=== PATIENT | male | born 1940 | race Caucasian/White ===

== ENCOUNTER → 2018-09-19 10:20 | Outpatient (CLI) | payer OTHER, SELFPAY ==
[2018-09-19 10:47] LABS: Hematocrit 49.6 % (41-53); Hemoglobin 16.5 g/dL (13.5-17.5); Mean Corpuscular HGB Conc 33.3 % (30-36); Mean Corpuscular Hemoglobin 33.1 PG (26-34); Mean Corpuscular Volume 99.6 fL (80-100); Platelet Count 312 X10^3/uL (150-400); Red Blood Cell Count 4.98 X10^6/uL (4.5-5.9); Red Cell Distribution Width 13.2 % (11.6-14.8); White Blood Cell Count 8.4 X10^3/uL (4.5-11.0)
[2018-09-19 11:04] LABS: Cholesterol 252 mg/dL (140-199); HDL Cholesterol 61 mg/dL (40-60); LDL Cholesterol Calculated 143 mg/dL (<100); Triglycerides 238 mg/dL (35-150)
[2018-09-19 11:34] LABS: Prostate Specific Antigen Scrn 6.05 ng/mL (0.1-4.0)
== END ==
PROVIDERS: PCP Student in an Organized Health Care Education/Training Program; Visit Provider Student in an Organized Health Care Education/Training Program
DX: E55.9 Vitamin D deficiency, unspecified (principal); E03.9 Hypothyroidism, unspecified; Z12.5 Encounter for screening for malignant neoplasm of prostate; Z13.220 Encounter for screening for lipoid disorders
CPT/HCPCS: 36415; 80061; 82306; 85027; G0103

== ENCOUNTER → 2019-06-18 09:55 | Outpatient (CLI) | payer OTHER, SELFPAY ==
[2019-06-18 11:09] LABS: Alanine Aminotransferase 22 IU/L (<50); Albumin 4.1 g/dL (3.5-5.0); Albumin Globulin Ratio 1.4 (1.0-2.8); Alkaline Phosphatase 76 U/L (38-126); Aspartate Aminotransferase 35 IU/L (17-59); Bilirubin Unconjugated 0.8 mg/dL (0.0-1.1); Cholesterol 245 mg/dL (140-199); Globulin 2.9 g/dL (1.7-4.1); HDL Cholesterol 54 mg/dL (40-60); HEMOLYSIS < 15 (0-50); LDL Cholesterol Calculated 153 mg/dL (<100); Triglycerides 189 mg/dL (35-150)
== END ==
PROVIDERS: PCP Student in an Organized Health Care Education/Training Program; Visit Provider Student in an Organized Health Care Education/Training Program
DX: E78.2 Mixed hyperlipidemia (principal); Z79.899 Other long term (current) drug therapy
CPT/HCPCS: 36415; 80061; 80076

== ENCOUNTER → 2019-09-04 09:22 | Outpatient (CLI) | payer OTHER, SELFPAY ==
[2019-09-04 11:32] LABS: Prolactin 26.3 ng/mL (3.7-17.9)
[2019-09-08 10:32] LABS: Testosterone Free 43.3 pg/mL (30.0-135.0); Testosterone Total 399 ng/dL (250-1100)
== END ==
PROVIDERS: PCP Student in an Organized Health Care Education/Training Program; Referring Provider Student in an Organized Health Care Education/Training Program; Visit Provider Student in an Organized Health Care Education/Training Program
DX: D35.2 Benign neoplasm of pituitary gland (principal); E29.1 Testicular hypofunction
CPT/HCPCS: 36415; 84146; 84402; 84403

== ENCOUNTER → 2020-01-31 14:13 | Outpatient (CLI) | payer OTHER, SELFPAY ==
[2020-01-31 15:20] LABS: Add Manual Diff / Slide Review NO; Basophils Absolute Auto 0 /uL (0-100); Basophils Percent Auto 0.1 % (0-2); Eosinophils Absolute Auto 200 /uL (0-450); Eosinophils Percent Auto 2.6 % (2-4); Hematocrit 43.4 % (41-53); Hemoglobin 14.7 g/dL (13.5-17.5); Lymphocytes Absolute Auto 2300 /uL (1100-4500); Lymphocytes Percent Auto 34.3 % (25-40); Mean Corpuscular HGB Conc 33.8 % (30-36); Mean Corpuscular Hemoglobin 32.4 PG (26-34); Mean Corpuscular Volume 95.8 fL (80-100); Monocytes Absolute Auto 500 /uL (0-900); Monocytes Percent Auto 7.9 % (3-14); Neutrophils Absolute Auto 3600 /uL (1500-7000); Neutrophils Percent Auto 55.1 % (50-75); Platelet Count 233 X10^3/uL (150-400); Red Blood Cell Count 4.53 X10^6/uL (4.5-5.9); Red Cell Distribution Width 13.7 % (11.6-14.8); White Blood Cell Count 6.6 X10^3/uL (4.5-11.0)
[2020-01-31 16:24] LABS: Prolactin 7.8 ng/mL (3.7-17.9)
== END ==
PROVIDERS: PCP Student in an Organized Health Care Education/Training Program; Referring Provider Student in an Organized Health Care Education/Training Program; Visit Provider Student in an Organized Health Care Education/Training Program
DX: D35.2 Benign neoplasm of pituitary gland (principal); E29.1 Testicular hypofunction; R09.89 Other specified symptoms and signs involving the circulatory and respiratory systems
CPT/HCPCS: 36415; 84146; 85025

== ENCOUNTER → 2020-04-16 11:11 | Outpatient (CLI) | payer OTHER, SELFPAY ==
[2020-04-16 13:10] LABS: Prolactin 7.8 ng/mL (3.7-17.9)
== END ==
PROVIDERS: PCP Student in an Organized Health Care Education/Training Program; Referring Provider Specialist; Visit Provider Specialist
DX: D35.2 Benign neoplasm of pituitary gland (principal); N40.1 Benign prostatic hyperplasia with lower urinary tract symptoms; N13.8 Other obstructive and reflux uropathy; E29.1 Testicular hypofunction; N48.6 Induration penis plastica
CPT/HCPCS: 36415; 51798; 81002; 84146; 84153; 99214

== ENCOUNTER → 2020-09-14 11:38 | Outpatient (CLI) | payer OTHER, SELFPAY ==
[2020-09-14 13:51] LABS: Alanine Aminotransferase 23 IU/L (<50); Albumin 4.4 g/dL (3.5-5.0); Albumin Globulin Ratio 1.4 (1.0-2.8); Alkaline Phosphatase 73 U/L (38-126); Aspartate Aminotransferase 37 IU/L (17-59); BUN Creatinine Ratio 12.1 (6-22); Bilirubin Total 1.1 mg/dL (0.2-1.3); Blood Urea Nitrogen 11 mg/dL (9-20); Calcium 9.1 mg/dL (8.4-10.2); Carbon Dioxide 30 mmol/L (22-32); Chloride 101 mmol/L (98-107); Estimated Glomerular Filt Rate > 60.0 mL/min (>60); Globulin 3.1 g/dL (1.7-4.1); Glucose 100 mg/dL (80-110); HEMOLYSIS < 15 (0-50); Potassium 3.7 mmol/L (3.4-5.1); Sodium 136 mmol/L (137-145); Total Protein 7.5 g/dL (6.3-8.2)
[2020-09-14 14:02] LABS: Prolactin 8.1 ng/mL (3.7-17.9)
[2020-09-14 14:11] LABS: Free T4, Direct Thyroxine 1.21 ng/dL (0.78-2.19)
[2020-09-14 14:16] LABS: Prostate Specific Antigen Scrn 3.78 ng/mL (0.1-4.0)
[2020-09-14 14:25] LABS: Thyroid Stimulating Hormone 0.557 uIU/mL (0.47-4.68)
[2020-09-19 08:28] LABS: Percent Free Testosterone 2.43 % (1.50-4.20); Testosterone Free 8.04 ng/dL (5.00-21.00); Testosterone Total 330.7 ng/dL (264.0-916.0)
== END ==
PROVIDERS: PCP Family Medicine; Referring Provider Family Medicine; Visit Provider Family Medicine
DX: D35.2 Benign neoplasm of pituitary gland (principal); Z12.5 Encounter for screening for malignant neoplasm of prostate; E03.9 Hypothyroidism, unspecified; E29.1 Testicular hypofunction
CPT/HCPCS: 36415; 80053; 84146; 84402; 84403; 84439; 84443; G0103

== ENCOUNTER → 2020-09-16 09:30 | Outpatient (CLI) | payer OTHER, SELFPAY ==
[2020-09-17 15:27] LABS: Fecal Immunochemical Test Negative (Negative)
== END ==
PROVIDERS: PCP Family Medicine; Referring Provider Family Medicine; Visit Provider Family Medicine
DX: D35.2 Benign neoplasm of pituitary gland (principal); E03.9 Hypothyroidism, unspecified; E29.1 Testicular hypofunction
CPT/HCPCS: 82274

== ENCOUNTER → 2020-10-05 09:18 | Outpatient (CLI) | payer MEDICARE, SELFPAY ==
[2020-10-05] MEDS: COVID-19 VACC, Ad26(JANSSEN)/PF 0.5 ML IM (09:25)
== END ==
PROVIDERS: PCP Family Medicine; Visit Provider Internal Medicine
DX: Z23 Encounter for immunization (principal)
CPT/HCPCS: 0031A; 91303

== ENCOUNTER → 2021-03-09 09:56 | Outpatient (CLI) | payer OTHER, SELFPAY ==
[2021-03-09 11:08] LABS: Prostate Specific Antigen 3.44 ng/mL (0.10-4.00)
== END ==
PROVIDERS: PCP Family Medicine; Referring Provider Specialist; Visit Provider Specialist
DX: N13.8 Other obstructive and reflux uropathy (principal); N40.1 Benign prostatic hyperplasia with lower urinary tract symptoms
CPT/HCPCS: 36415; 84153

== ENCOUNTER → 2021-06-07 15:33 | Outpatient (CLI) | payer OTHER, SELFPAY ==
[2021-06-07 17:41] LABS: Add Manual Diff / Slide Review NO; Basophils Absolute Auto 0 /uL (0-100); Basophils Percent Auto 0.3 % (0-2); Eosinophils Absolute Auto 200 /uL (0-450); Eosinophils Percent Auto 2.6 % (2-4); Hematocrit 43.1 % (41-53); Hemoglobin 14.9 g/dL (13.5-17.5); Lymphocytes Absolute Auto 2200 /uL (1100-4500); Lymphocytes Percent Auto 32.9 % (25-40); Mean Corpuscular HGB Conc 34.6 % (30-36); Mean Corpuscular Hemoglobin 33.4 PG (26-34); Mean Corpuscular Volume 96.5 fL (80-100); Monocytes Absolute Auto 500 /uL (0-900); Monocytes Percent Auto 7.1 % (3-14); Neutrophils Absolute Auto 3800 /uL (1500-7000); Neutrophils Percent Auto 57.1 % (50-75); Platelet Count 291 X10^3/uL (150-400); Red Blood Cell Count 4.47 X10^6/uL (4.5-5.9); Red Cell Distribution Width 13.5 % (11.6-14.8); White Blood Cell Count 6.7 X10^3/uL (4.5-11.0)
[2021-06-07 18:01] LABS: Alanine Aminotransferase 22 IU/L (<50); Albumin 4.4 g/dL (3.5-5.0); Albumin Globulin Ratio 1.5 (1.0-2.8); Alkaline Phosphatase 78 U/L (38-126); Aspartate Aminotransferase 39 IU/L (17-59); BUN Creatinine Ratio 11.9 (6-22); Blood Urea Nitrogen 10 mg/dL (9-20); Calcium 9.3 mg/dL (8.4-10.2); Carbon Dioxide 27 mmol/L (22-32); Chloride 99 mmol/L (98-107); Estimated Glomerular Filt Rate > 60.0 mL/min (>60); Glucose 90 mg/dL (80-110); HEMOLYSIS < 15 (0-50); Potassium 4.1 mmol/L (3.4-5.1); Sodium 134 mmol/L (137-145); Total Protein 7.4 g/dL (6.3-8.2)
[2021-06-07 18:18] LABS: Free T4, Direct Thyroxine 0.97 ng/dL (0.78-2.19)
[2021-06-07 18:20] LABS: Prolactin 14.6 ng/mL (3.7-17.9)
[2021-06-07 18:32] LABS: Thyroid Stimulating Hormone 0.381 uIU/mL (0.47-4.68)
== END ==
PROVIDERS: PCP Family Medicine; Referring Provider Family Medicine; Visit Provider Family Medicine
DX: D35.2 Benign neoplasm of pituitary gland (principal); E29.1 Testicular hypofunction; N40.1 Benign prostatic hyperplasia with lower urinary tract symptoms; R39.14 Feeling of incomplete bladder emptying; E03.9 Hypothyroidism, unspecified
CPT/HCPCS: 36415; 80053; 84146; 84439; 84443; 85025

== ENCOUNTER → 2021-12-24 09:21 | Outpatient (CLI) | payer OTHER, SELFPAY ==
--- NOTE | 2021-12-24 09:23 | DI.RAD.S_ITS ---
PROCEDURE: XR LUMBAR SPINE 2-3V INDICATIONS: Increasing low back pain. TECHNIQUE: 3 views of the lumbar spine were acquired. COMPARISON: None. FINDINGS: Bones: 5 [id number] vertebrae are present. Minimal scoliosis. Moderate vertebral body osteophytes. Lower lumbar spine facet joint hypertrophy. Multilevel loss of intervertebral disc space height. No vertebral body compression fractures. No suspicious bony lesions. Soft tissues: Overlying bowel gas pattern is normal. No suspicious soft tissue calcifications. Vascular calcifications. IMPRESSION: No compression fracture. Moderate to severe degenerative change in the lumbar spine. Dictated by: Jamie Brown M.D. on 12/24/2021 at 11:45 Approved by: Jamie Brown M.D. on 12/24/2021 at 11:47
== END ==
PROVIDERS: PCP Family Medicine; Referring Provider Family Medicine; Visit Provider Family Medicine
DX: Z00.00 Encounter for general adult medical examination without abnormal findings (principal); M47.816 Spondylosis without myelopathy or radiculopathy, lumbar region; D35.2 Benign neoplasm of pituitary gland; E29.1 Testicular hypofunction; N40.0 Benign prostatic hyperplasia without lower urinary tract symptoms; E03.9 Hypothyroidism, unspecified
CPT/HCPCS: 72100

== ENCOUNTER → 2021-12-24 09:46 | Outpatient (CLI) | payer OTHER, SELFPAY ==
[2021-12-24 10:59] LABS: Add Manual Diff / Slide Review NO; Basophils Absolute Auto 0 /uL (0-100); Basophils Percent Auto 0.4 % (0-2); Eosinophils Absolute Auto 200 /uL (0-450); Eosinophils Percent Auto 3.4 % (2-4); Hematocrit 42.2 % (41-53); Hemoglobin 14.6 g/dL (13.5-17.5); Lymphocytes Absolute Auto 2100 /uL (1100-4500); Lymphocytes Percent Auto 38.5 % (25-40); Mean Corpuscular HGB Conc 34.7 % (30-36); Mean Corpuscular Hemoglobin 33.2 PG (26-34); Mean Corpuscular Volume 95.8 fL (80-100); Monocytes Absolute Auto 500 /uL (0-900); Monocytes Percent Auto 9.1 % (3-14); Neutrophils Absolute Auto 2700 /uL (1500-7000); Neutrophils Percent Auto 48.6 % (50-75); Platelet Count 269 X10^3/uL (150-400); Red Blood Cell Count 4.41 X10^6/uL (4.5-5.9); Red Cell Distribution Width 13.5 % (11.6-14.8); White Blood Cell Count 5.6 X10^3/uL (4.5-11.0)
[2021-12-24 11:13] LABS: Alanine Aminotransferase 23 IU/L (<50); Albumin 4.4 g/dL (3.5-5.0); Albumin Globulin Ratio 1.3 (1.0-2.8); Alkaline Phosphatase 84 U/L (38-126); Aspartate Aminotransferase 37 IU/L (17-59); BUN Creatinine Ratio 12.4 (6-22); Bilirubin Total 1.2 mg/dL (0.2-1.3); Blood Urea Nitrogen 11 mg/dL (9-20); Calcium 8.7 mg/dL (8.4-10.2); Carbon Dioxide 30 mmol/L (22-32); Chloride 100 mmol/L (98-107); Estimated Glomerular Filt Rate > 60 mL/min (>60); Globulin 3.5 g/dL (1.7-4.1); Glucose 105 mg/dL (80-110); HEMOLYSIS < 15 (0-50); Sodium 136 mmol/L (137-145); Total Protein 7.9 g/dL (6.3-8.2)
[2021-12-24 11:23] LABS: Prolactin 17.7 ng/mL (3.7-17.9)
[2021-12-24 11:37] LABS: Prostate Specific Antigen Scrn 5.04 ng/mL (0.1-4.0)
[2021-12-24 12:31] LABS: Free T4, Direct Thyroxine 1.17 ng/dL (0.78-2.19)
[2021-12-24 12:44] LABS: Thyroid Stimulating Hormone 0.501 uIU/mL (0.47-4.68)
[2021-12-30 07:09] LABS: Percent Free Testosterone 2.54 % (1.50-4.20); Testosterone Free 33.58 ng/dL (5.00-21.00); Testosterone Total 1322.2 ng/dL (264.0-916.0)
== END ==
PROVIDERS: PCP Family Medicine; Referring Provider Family Medicine; Visit Provider Family Medicine
DX: Z00.00 Encounter for general adult medical examination without abnormal findings (principal); D35.2 Benign neoplasm of pituitary gland; E03.9 Hypothyroidism, unspecified; E29.1 Testicular hypofunction; N40.0 Benign prostatic hyperplasia without lower urinary tract symptoms; M47.816 Spondylosis without myelopathy or radiculopathy, lumbar region; Z12.5 Encounter for screening for malignant neoplasm of prostate
CPT/HCPCS: 36415; 72100; 80053; 84146; 84402; 84403; 84439; 84443; 85025; G0103

== ENCOUNTER → 2022-01-11 13:36 | Outpatient (CLI) | payer OTHER, SELFPAY ==
--- NOTE | 2022-01-11 13:37 | DI.MRI.S_ITS ---
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 Thin-slice sagittal and coronal T1 spin echo, coronal T2 fast spin echo through the pituitary. After the administration contrast, optional dynamic coronal T1 spin echo, thin-slice coronal and sagittal T1 spin echo images through the pituitary fossa; axial and coronal and sagittal T1 spin echo with fat saturation through the brain. COMPARISON: None. FINDINGS: Image quality: Diagnostic. 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 This pituitary cyst limits evaluation the pituitary tissue, although a small amount of enhancing pituitary tissue can be seen along the right aspect of the pituitary fossa. The pituitary stalk is deviated to the right. The optic chiasm and the ventral forebrain demonstrate an unremarkable appearance. CSF Spaces: Ventricles are normal in size and shape. Basal cisterns are patent. No extra-axial fluid collections. Brain: No intracranial bleeds or mass effects. No abnormal intracranial enhancement. Marinelli-white matter interface is intact. Diffusion weighted images demonstrate no acute ischemic insults. Brainstem is normal. Normal intravascular flow voids are present. Note is made of age-appropriate brain parenchymal volume loss and chronic small vessel ischemic changes. Skull and face: Calvarial marrow is normal in signal. Orbits appear normal. Sinuses: Moderate mucosal thickening is seen involving the left maxillary sinus, with [id number] mucosal thickening seen elsewhere within the paranasal sinuses. No abnormal fluid is seen within the mastoid air cells. 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 Dictated by: Byron Figueroa M.D. on 01/11/2022 at 14:11 Approved by: Byron Figueroa M.D. on 01/11/2022 at 14:14
== END ==
PROVIDERS: PCP Family Medicine; Referring Provider Family Medicine; Visit Provider Family Medicine
DX: D35.2 Benign neoplasm of pituitary gland (principal); E23.6 Other disorders of pituitary gland
CPT/HCPCS: 70553; A9579

== ENCOUNTER → 2022-03-07 08:53 | Outpatient (CLI) | payer OTHER, SELFPAY ==
[2022-03-07 09:59] LABS: Alanine Aminotransferase 21 IU/L (<50); Albumin Globulin Ratio 1.3 (1.0-2.8); Alkaline Phosphatase 71 U/L (38-126); Aspartate Aminotransferase 33 IU/L (17-59); BUN Creatinine Ratio 11.4 (6-22); Bilirubin Total 0.9 mg/dL (0.2-1.3); Blood Urea Nitrogen 10 mg/dL (9-20); Calcium 8.5 mg/dL (8.4-10.2); Carbon Dioxide 30 mmol/L (22-32); Chloride 102 mmol/L (98-107); Estimated Glomerular Filt Rate > 60 mL/min (>60); Globulin 3.2 g/dL (1.7-4.1); Glucose 100 mg/dL (80-110); HEMOLYSIS < 15 (0-50); Potassium 4.3 mmol/L (3.4-5.1); Sodium 137 mmol/L (137-145); Total Protein 7.2 g/dL (6.3-8.2)
[2022-03-07 10:14] LABS: Prolactin 17.9 ng/mL (3.7-17.9)
[2022-03-07 10:20] LABS: Free T4, Direct Thyroxine 0.99 ng/dL (0.78-2.19)
[2022-03-07 10:28] LABS: Prostate Specific Antigen 5.33 ng/mL (0.10-4.00)
[2022-03-07 10:33] LABS: Thyroid Stimulating Hormone 0.447 uIU/mL (0.47-4.68)
[2022-03-13 10:46] LABS: Percent Free Testosterone 1.77 % (1.50-4.20); Testosterone Free 8.41 ng/dL (5.00-21.00); Testosterone Total 475.2 ng/dL (264.0-916.0)
== END ==
PROVIDERS: PCP Family Medicine; Referring Provider Family Medicine; Visit Provider Family Medicine
DX: R97.20 Elevated prostate specific antigen [PSA] (principal); E03.9 Hypothyroidism, unspecified; D35.2 Benign neoplasm of pituitary gland; E29.1 Testicular hypofunction
CPT/HCPCS: 36415; 80053; 84146; 84153; 84402; 84403; 84439; 84443

== ENCOUNTER → 2022-04-01 10:45 | Outpatient (CLI) | payer OTHER, SELFPAY ==
[2022-04-01 12:04] LABS: Alanine Aminotransferase 28 IU/L (<50); Albumin 4.3 g/dL (3.5-5.0); Albumin Globulin Ratio 1.2 (1.0-2.8); Alkaline Phosphatase 75 U/L (38-126); Aspartate Aminotransferase 42 IU/L (17-59); BUN Creatinine Ratio 12.2 (6-22); Bilirubin Total 1.1 mg/dL (0.2-1.3); Blood Urea Nitrogen 11 mg/dL (9-20); Carbon Dioxide 29 mmol/L (22-32); Chloride 99 mmol/L (98-107); Estimated Glomerular Filt Rate > 60 mL/min (>60); Globulin 3.6 g/dL (1.7-4.1); Glucose 99 mg/dL (80-110); HEMOLYSIS < 15 (0-50); Potassium 4.7 mmol/L (3.4-5.1); Sodium 134 mmol/L (137-145); Total Protein 7.9 g/dL (6.3-8.2)
[2022-04-01 12:20] LABS: Prolactin 17.9 ng/mL (3.7-17.9)
== END ==
PROVIDERS: PCP Family Medicine; Referring Provider Family Medicine; Visit Provider Family Medicine
DX: D35.2 Benign neoplasm of pituitary gland (principal)
CPT/HCPCS: 36415; 80053; 84146

== ENCOUNTER → 2022-08-19 08:47 | Outpatient (CLI) | payer OTHER, SELFPAY ==
[2022-08-19 10:16] LABS: Add Manual Diff / Slide Review NO; Basophils Absolute Auto 0 /uL (0-100); Basophils Percent Auto 0.4 % (0-2); Eosinophils Absolute Auto 300 /uL (0-450); Eosinophils Percent Auto 4.8 % (2-4); Hematocrit 42.9 % (41-53); Hemoglobin 14.7 g/dL (13.5-17.5); Lymphocytes Absolute Auto 2700 /uL (1100-4500); Lymphocytes Percent Auto 47.8 % (25-40); Mean Corpuscular HGB Conc 34.2 % (30-36); Mean Corpuscular Hemoglobin 32.7 PG (26-34); Mean Corpuscular Volume 95.6 fL (80-100); Monocytes Absolute Auto 500 /uL (0-900); Monocytes Percent Auto 9.8 % (3-14); Neutrophils Absolute Auto 2100 /uL (1500-7000); Neutrophils Percent Auto 37.2 % (50-75); Platelet Count 240 X10^3/uL (150-400); Red Blood Cell Count 4.49 X10^6/uL (4.5-5.9); Red Cell Distribution Width 13.2 % (11.6-14.8); White Blood Cell Count 5.6 X10^3/uL (4.5-11.0)
[2022-08-19 10:52] LABS: Alanine Aminotransferase 29 IU/L (<50); Albumin Globulin Ratio 1.1 (1.0-2.8); Alkaline Phosphatase 89 U/L (38-126); Aspartate Aminotransferase 36 IU/L (17-59); BUN Creatinine Ratio 12.6 (6-22); Bilirubin Total 1.1 mg/dL (0.2-1.3); Blood Urea Nitrogen 11 mg/dL (9-20); Calcium 8.7 mg/dL (8.4-10.2); Carbon Dioxide 29 mmol/L (22-32); Chloride 99 mmol/L (98-107); Cholesterol 226 mg/dL (140-199); Estimated Glomerular Filt Rate > 60 mL/min (>60); Globulin 3.6 g/dL (1.7-4.1); Glucose 99 mg/dL (80-110); HDL Cholesterol 50 mg/dL (40-60); HEMOLYSIS < 15 (0-50); LDL Cholesterol Calculated 149 mg/dL (<100); Potassium 4.4 mmol/L (3.4-5.1); Sodium 136 mmol/L (137-145); Total Protein 7.6 g/dL (6.3-8.2); Triglycerides 136 mg/dL (35-150)
[2022-08-19 11:21] LABS: Prostate Specific Antigen Scrn 5.72 ng/mL (0.1-4.0)
[2022-08-19 11:22] LABS: TSH w/ Reflex to FT4 0.64 uIU/mL (0.47-4.68)
[2022-08-28 04:54] LABS: Percent Free Testosterone 2.81 % (1.50-4.20); Testosterone Free 33.93 ng/dL (5.00-21.00); Testosterone Total 1207.4 ng/dL (264.0-916.0)
== END ==
PROVIDERS: PCP Family Medicine; Referring Provider Family Medicine; Visit Provider Family Medicine
DX: E03.9 Hypothyroidism, unspecified (principal); Z12.5 Encounter for screening for malignant neoplasm of prostate; Z00.00 Encounter for general adult medical examination without abnormal findings; R97.20 Elevated prostate specific antigen [PSA]; E29.1 Testicular hypofunction
CPT/HCPCS: 36415; 80053; 80061; 84402; 84403; 84443; 85025; G0103

== ENCOUNTER → 2022-09-25 11:05 | Outpatient (CLI) | payer OTHER, SELFPAY ==
--- NOTE | 2022-09-25 12:05 | DI.MRI.S_ITS ---
PROCEDURE: MR PELVIC PROSTATE PROTOCOL INDICATIONS: Elevated prostate specific antigen [PSA] TECHNIQUE: Coronal HASTE, axial T1 FSE with fat saturation, 3-plane nonbreath-hold T2 FSE. After the administration of contrast, dynamic axial, delayed axial and coronal VIBE or 2-D FLASH with fat saturation through the pelvis. Optional diffusion weighted imaging and ADC may be performed. COMPARISON: None. FINDINGS: Image quality: Diffusion weighted and dynamic contrast enhanced images are diagnostic. Prostate: The prostate demonstrates morphology of early benign prostatic hypertrophy with protrusion into the bladder of a median lobe nodule. The peripheral zone is preserved. Gland size is 4.4 x 5.1 x 6.1 cm; ellipsoid gland volume is 71 mL. There are no focal lesions or areas of suspicious signal in the prostate gland. Nodular hyperenhancement of several transition zone nodules. Genitourinary system: Bladder wall thickness is normal. Distal ureters are non distended. Trace bilateral hydroceles. Bowel and peritoneum: Extensive sigmoid diverticulosis. No pathologic free pelvic fluid. Inferior colon and small bowel loops are normal in caliber. Nodes and vessels: No pelvic or inguinal adenopathy by size criteria. Iliac vessels are normal in caliber. Soft tissues: Small fat containing left inguinal hernia. Bones: Marrow demonstrates normal overall signal, without lesions to suggest metastases. IMPRESSION: 1. Enlarged prostate gland with morphology of early BPH. 2. No focal prostate lesions to suspect clinically significant carcinoma. 3. Incidental note of extensive sigmoid diverticulosis. Dictated by: Alisha Goetz M.D. on 09/26/2022 at 10:04 Approved by: Alisha Goetz M.D. on 09/26/2022 at 10:22
== END ==
PROVIDERS: PCP Family Medicine; Referring Provider Urology; Visit Provider Urology
DX: N40.0 Benign prostatic hyperplasia without lower urinary tract symptoms (principal); R97.20 Elevated prostate specific antigen [PSA]; K57.30 Diverticulosis of large intestine without perforation or abscess without bleeding; K40.90 Unilateral inguinal hernia, without obstruction or gangrene, not specified as recurrent
CPT/HCPCS: 72197; A9579

== ENCOUNTER → 2022-10-20 12:07 | Outpatient (CLI) | payer OTHER, SELFPAY ==
[2022-10-20 12:58] LABS: Influenza A - CEPHEID Flu A NEGATIVE (NEGATIVE); Influenza B - CEPHEID Flu B NEGATIVE (NEGATIVE); Respiratory Syncytial Virus Negative (Negative)
[2022-10-20 13:29] LABS: COVID-19 CEPHEID 4-PLEX PCR Negative (Negative)
== END ==
PROVIDERS: PCP Family Medicine; Visit Provider Nurse Practitioner Family
DX: R09.81 Nasal congestion (principal)
CPT/HCPCS: 0241U

== ENCOUNTER → 2022-10-20 12:17 | Outpatient (CLI) | payer OTHER, SELFPAY ==
--- NOTE | 2022-10-20 12:18 | DI.RAD.S_ITS ---
PROCEDURE: XR CHEST 2V INDICATIONS: rhonchii TECHNIQUE: 2 views of the chest were acquired. COMPARISON: None. FINDINGS: Surgical changes and devices: None. Lungs and pleura: There is small to moderate right pleural effusion and right lower lobe atelectasis. No pneumothorax. Left lung is clear. Mediastinum: Mediastinal contours are normal. Heart size is normal. Bones and chest wall: No suspicious bony abnormalities. Soft tissues appear unremarkable. IMPRESSION: Suggestion of small to moderate right pleural effusion with right lower lobe atelectasis. No gross pneumothorax. Dictated by: Woodrow Almonte M.D. on 10/20/2022 at 13:20 Approved by: Woodrow Almonte M.D. on 10/20/2022 at 13:21
== END ==
PROVIDERS: PCP Family Medicine; Referring Provider Nurse Practitioner Family; Visit Provider Nurse Practitioner Family
DX: J98.11 Atelectasis (principal); R05.9 Cough, unspecified; R09.81 Nasal congestion
CPT/HCPCS: 0241U; 71046

== ENCOUNTER → 2023-08-29 10:16 | Outpatient (CLI) | payer OTHER, SELFPAY ==
[2023-08-29 11:09] LABS: Add Manual Diff / Slide Review NO; Basophils Absolute Auto 0 /uL (0-100); Basophils Percent Auto 0.3 % (0-2); Eosinophils Absolute Auto 200 /uL (0-450); Eosinophils Percent Auto 3.7 % (2-4); Hematocrit 45.2 % (41-53); Hemoglobin 15.4 g/dL (13.5-17.5); Lymphocytes Absolute Auto 2500 /uL (1100-4500); Lymphocytes Percent Auto 44.4 % (25-40); Mean Corpuscular HGB Conc 34.1 % (30-36); Mean Corpuscular Hemoglobin 33.2 PG (26-34); Mean Corpuscular Volume 97.3 fL (80-100); Monocytes Absolute Auto 400 /uL (0-900); Monocytes Percent Auto 7.7 % (3-14); Neutrophils Absolute Auto 2500 /uL (1500-7000); Neutrophils Percent Auto 43.9 % (50-75); Platelet Count 268 X10^3/uL (150-400); Red Blood Cell Count 4.64 X10^6/uL (4.5-5.9); Red Cell Distribution Width 14.1 % (11.6-14.8); White Blood Cell Count 5.6 X10^3/uL (4.5-11.0)
[2023-08-29 12:33] LABS: Alanine Aminotransferase 24 IU/L (<50); Albumin 4.2 g/dL (3.5-5.0); Albumin Globulin Ratio 1.2 (1.0-2.8); Alkaline Phosphatase 78 U/L (38-126); Aspartate Aminotransferase 35 IU/L (17-59); BUN Creatinine Ratio 11.1 (6-22); Bilirubin Total 1.6 mg/dL (0.2-1.3); Blood Urea Nitrogen 11 mg/dL (9-20); Calcium 9.4 mg/dL (8.4-10.2); Carbon Dioxide 26 mmol/L (22-32); Chloride 101 mmol/L (98-107); Estimated Glomerular Filt Rate > 60 mL/min (>60); Globulin 3.4 g/dL (1.7-4.1); Glucose 90 mg/dL (80-110); HEMOLYSIS < 15 (0-50); Potassium 4.4 mmol/L (3.4-5.1); Sodium 136 mmol/L (137-145); Total Protein 7.6 g/dL (6.3-8.2)
[2023-08-29 12:49] LABS: Free T4, Direct Thyroxine 1.36 ng/dL (0.78-2.19)
[2023-08-29 13:03] LABS: Thyroid Stimulating Hormone 0.414 uIU/mL (0.47-4.68)
[2023-08-31 21:49] LABS: PSA Free % 22.8 % (.)
[2023-09-07 10:17] LABS: Percent Free Testosterone 2.12 % (1.50-4.20); Testosterone Free 7.25 ng/dL (5.00-21.00)
== END ==
PROVIDERS: PCP Family Medicine; Referring Provider Family Medicine; Visit Provider Family Medicine
DX: N40.1 Benign prostatic hyperplasia with lower urinary tract symptoms (principal); E78.2 Mixed hyperlipidemia; N13.8 Other obstructive and reflux uropathy; E03.9 Hypothyroidism, unspecified; E29.1 Testicular hypofunction; Z79.890 Hormone replacement therapy
CPT/HCPCS: 36415; 80053; 84153; 84154; 84402; 84403; 84439; 84443; 85025

== ENCOUNTER → 2023-11-09 10:48 | Outpatient (CLI) | payer OTHER, SELFPAY ==
--- NOTE | 2023-11-09 10:50 | DI.RAD.S_ITS ---
PROCEDURE: XR LUMBAR SPINE 2-3V INDICATIONS: eval low back pain TECHNIQUE: 3 views of the lumbar spine were acquired. COMPARISON: [facility], CR, XR LUMBAR SPINE 2-3V, 12/24/2021, 10:03. FINDINGS: Bones: 5 [id number] vertebrae are present. Mild scoliosis noted.. No vertebral body compression fractures. Diffuse degenerative disc disease noted especially in the lower lumbar spine. Soft tissues: Overlying bowel gas pattern is normal. Severe aortic atherosclerotic calcifications seen. IMPRESSION: No acute bony abnormality. Degenerative disc disease of the lower lumbar spine Dictated by: Galdino Lopes M.D. on 11/09/2023 at 12:57 Approved by: Galdino Lopes M.D. on 11/09/2023 at 13:09
== END ==
LOC: RAD 10:49
PROVIDERS: PCP Family Medicine; Referring Provider Family Medicine; Visit Provider Family Medicine
DX: M51.36 Other intervertebral disc degeneration, lumbar region (principal); M43.06 Spondylolysis, lumbar region
CPT/HCPCS: 72100

== ENCOUNTER → 2024-03-12 08:25 | Outpatient (CLI) | payer OTHER, SELFPAY ==
[2024-03-12 09:45] LABS: Add Manual Diff / Slide Review NO; Basophils Absolute Auto 0 /uL (0-100); Basophils Percent Auto 0.4 % (0-2); Eosinophils Absolute Auto 300 /uL (0-450); Hematocrit 42.5 % (41-53); Hemoglobin 14.5 g/dL (13.5-17.5); Lymphocytes Absolute Auto 3000 /uL (1100-4500); Lymphocytes Percent Auto 45.5 % (25-40); Mean Corpuscular HGB Conc 34.2 % (30-36); Mean Corpuscular Hemoglobin 33.2 PG (26-34); Monocytes Absolute Auto 500 /uL (0-900); Monocytes Percent Auto 7.7 % (3-14); Neutrophils Absolute Auto 2800 /uL (1500-7000); Neutrophils Percent Auto 42.4 % (50-75); Platelet Count 276 X10^3/uL (150-400); Red Blood Cell Count 4.38 X10^6/uL (4.5-5.9); Red Cell Distribution Width 13.4 % (11.6-14.8); White Blood Cell Count 6.5 X10^3/uL (4.5-11.0)
[2024-03-12 10:24] LABS: Alanine Aminotransferase 24 IU/L (<50); Albumin 3.9 g/dL (3.5-5.0); Albumin Globulin Ratio 1.3 (1.0-2.8); Alkaline Phosphatase 93 U/L (38-126); Aspartate Aminotransferase 36 IU/L (17-59); BUN Creatinine Ratio 9.7 (6-22); Bilirubin Total 1.2 mg/dL (0.2-1.3); Blood Urea Nitrogen 9 mg/dL (9-20); Calcium 8.9 mg/dL (8.4-10.2); Carbon Dioxide 25 mmol/L (22-32); Chloride 102 mmol/L (98-107); Estimated Glomerular Filt Rate > 60 mL/min (>60); Globulin 3.1 g/dL (1.7-4.1); Glucose 91 mg/dL (80-110); HEMOLYSIS < 15 (0-50); Potassium 4.7 mmol/L (3.4-5.1); Sodium 134 mmol/L (137-145)
[2024-03-12 13:30] LABS: Free T4, Direct Thyroxine 0.91 ng/dL (0.78-2.19)
[2024-03-12 13:44] LABS: Thyroid Stimulating Hormone 0.573 uIU/mL (0.47-4.68)
== END ==
PROVIDERS: PCP Family Medicine; Referring Provider Family Medicine; Visit Provider Family Medicine
DX: R97.20 Elevated prostate specific antigen [PSA] (principal); E29.1 Testicular hypofunction; Z79.890 Hormone replacement therapy; E03.9 Hypothyroidism, unspecified
CPT/HCPCS: 36415; 80053; 84153; 84154; 84402; 84403; 84439; 84443; 85025

== ENCOUNTER → 2024-11-04 09:11 | Outpatient (CLI) | payer MEDICARE, SELFPAY ==
[2024-11-04 09:49] LABS: Add Manual Diff / Slide Review NO; Basophils Absolute Auto 0 /uL (0-100); Basophils Percent Auto 0.4 % (0-2); Eosinophils Absolute Auto 300 /uL (0-450); Eosinophils Percent Auto 4.7 % (2-4); Hematocrit 41.8 % (41-53); Hemoglobin 14.4 g/dL (13.5-17.5); Lymphocytes Absolute Auto 3200 /uL (1100-4500); Lymphocytes Percent Auto 47.2 % (25-40); Mean Corpuscular HGB Conc 34.5 % (30-36); Mean Corpuscular Hemoglobin 33.9 PG (26-34); Mean Corpuscular Volume 98.4 fL (80-100); Monocytes Absolute Auto 600 /uL (0-900); Monocytes Percent Auto 9.4 % (3-14); Neutrophils Absolute Auto 2600 /uL (1500-7000); Neutrophils Percent Auto 38.3 % (50-75); Platelet Count 279 X10^3/uL (150-400); Red Blood Cell Count 4.25 X10^6/uL (4.5-5.9); Red Cell Distribution Width 13.5 % (11.6-14.8); White Blood Cell Count 6.7 X10^3/uL (4.5-11.0)
[2024-11-04 10:08] LABS: Cholesterol 215 mg/dL (140-199); HDL Cholesterol 51 mg/dL (40-60); LDL Cholesterol Calculated 136 mg/dL (<100); Triglycerides 138 mg/dL (35-150)
[2024-11-04 10:24] LABS: Free T4, Direct Thyroxine 1.25 ng/dL (0.78-2.19)
[2024-11-04 10:37] LABS: Prostate Specific Antigen Scrn 5.36 ng/mL (0.1-4.0)
[2024-11-04 10:38] LABS: Thyroid Stimulating Hormone 0.127 uIU/mL (0.47-4.68)
== END ==
PROVIDERS: PCP Family Medicine; Referring Provider Family Medicine; Visit Provider Family Medicine
DX: R97.20 Elevated prostate specific antigen [PSA] (principal); E03.9 Hypothyroidism, unspecified; N40.1 Benign prostatic hyperplasia with lower urinary tract symptoms; N13.8 Other obstructive and reflux uropathy; E78.2 Mixed hyperlipidemia; Z79.890 Hormone replacement therapy; Z12.5 Encounter for screening for malignant neoplasm of prostate
CPT/HCPCS: 36415; 80061; 84402; 84403; 84439; 84443; 85025; G0103

== ENCOUNTER → 2025-04-22 11:46 | Outpatient (CLI) | payer MEDICARE, SELFPAY ==
[2025-04-22 12:36] LABS: Add Manual Diff / Slide Review NO; Hematocrit 46.2 % (41-53); Hemoglobin 16.0 g/dL (13.5-17.5); Lymphocytes Absolute Auto 3100 /uL (1100-4500); Mean Corpuscular HGB Conc 34.7 % (30-36); Mean Corpuscular Hemoglobin 33.3 PG (26-34); Mean Corpuscular Volume 96.0 fL (80-100); Platelet Count 346 X10^3/uL (150-400)
[2025-04-22 13:04] LABS: Alanine Aminotransferase 26 IU/L (<50); Albumin 4.6 g/dL (3.5-5.0); Albumin Globulin Ratio 1.5 (1.0-2.8); Alkaline Phosphatase 89 U/L (38-126); Blood Urea Nitrogen 14 mg/dL (9-20); Calcium 9.3 mg/dL (8.4-10.2); Carbon Dioxide 21 mmol/L (22-32); Chloride 100 mmol/L (98-107); Estimated Glomerular Filt Rate 54 mL/min (>60); Globulin 3.1 g/dL (1.7-4.1); Glucose 148 mg/dL (70-99); HEMOLYSIS < 15 (0-50); Potassium 4.9 mmol/L (3.4-5.1); Sodium 133 mmol/L (137-145); Total Protein 7.7 g/dL (6.3-8.2)
[2025-04-22 13:13] LABS: Free T4, Direct Thyroxine 1.43 ng/dL (0.78-2.19); NT-proBNP (BNP-Adult 18+) 2860 pg/mL (<450)
[2025-04-22 13:27] LABS: Thyroid Stimulating Hormone 0.144 uIU/mL (0.47-4.68)
== END ==
PROVIDERS: PCP Family Medicine; Referring Provider Family Medicine; Visit Provider Family Medicine
DX: R42 Dizziness and giddiness (principal); E03.9 Hypothyroidism, unspecified
CPT/HCPCS: 36415; 80053; 83880; 84439; 84443; 85025

== ENCOUNTER → 2025-05-06 09:07 | Outpatient (CLI) | payer MEDICARE, SELFPAY ==
--- NOTE | 2025-05-06 09:08 | DI.ECHO.S_ITS ---
Version: 1 Study ID: [id number] [place] [id number] Name: MARK DHILLON Study Date: 05/06/2025, 9: 36 AM : 1940 BP: 153 / 100 mmHg Gender: Male Height: 69 in Age: 85 Years Weight: 163 lb BSA: 1.89 mA??? Ordering: AURA ROA Referring: AURA ROA Clinician: Thai Galicia Reason For Study: DIZZINESS History: Summary Statements 1) Normal left ventricular thickness and size with low normal systolic function (EF 50-55%). 2) Normal right ventricular size with low normal function. 3) There is mild to moderate mitral regurgitation. 4) No prior Echo available for comparison. Tachycardia present during the study. Procedure: A two-dimensional transthoracic echocardiogram with color flow and Doppler was performed. The study quality was technically good. There is no prior echocardiogram noted for this patient. The patient was in a tachycardic rhythm during the exam. Left Ventricle: The left ventricle is normal in size. There is normal left ventricular wall thickness. There is no ventricular septal defect visualized. The ejection fraction is estimated to be 50-55%. There are no focal wall motion abnormalities. Right Ventricle: The right ventricle is normal size. Right ventricular systolic function is at the lower limits of normal. Atria: The left atrium is severely dilated. The right atrium is mild to moderately dilated. There is no Doppler evidence for an interatrial shunt. The interatrial septum bows toward right atrium consistent with elevated left atrial pressure. Mitral Valve: There is mild mitral annular calcification. The mitral valve leaflets appear mildly thickened. There is mild to moderate mitral regurgitation. Aortic Valve: The aortic valve is trileaflet. The aortic valve opens well. There is no aortic valve stenosis. No aortic regurgitation is present. Tricuspid Valve: The tricuspid valve leaflets are thin and pliable. There is mild tricuspid regurgitation. The right ventricular systolic pressure is estimated to be at least 28 mmHg based on an estimated right atrial pressure of 3 mm Hg. Pulmonic Valve: The pulmonic valve leaflets are thin and pliable; valve motion is normal. There is trace pulmonic regurgitation. Great Vessels: The aortic root is normal size. The dimensions of the ascending aorta are normal. The pulmonary artery is normal size. The IVC is of normal diameter and collapses greater than 50% with a sniff. This suggests a low right atrial pressure of 3 mm Hg. Pericardium/ Pleura: There is no pericardial effusion. There is no pleural effusion. 2D and M-Mode Measurements and Calculations LVIDd: 4.8 cm AoV Openin.64 cm LVIDs: 2.9 cm LVOT diam: 2.10 cm IVSd: 0.94 cm Ao root diam: 3.3 cm LVPWd: 0.86 cm asc Aorta Diam: 3.6 cm LV wilkes. diameter/BSA (cm/m^2): 2.5 LV sys. diameter/BSA (cm/m^2): 1.54 EPSS: 0.51 cm RVD1 (basal): 3.7 cm RVD2 (mid): 2.06 cm TAPSE: 1.91 cm LA A4 area: 26.5 fire controlman??? IVC diam: 1.66 cm LA A2 area: 26.2 fire controlman??? RA area: 21.2 fire controlman??? LA length (vol): 6.7 cm RA long axis: 6.3 cm LA vol: 87.8 ml RA vol: 61.0 ml LA vol index: 46.3 ml/mA??? RA : 32.2 ml/mA??? Doppler Measurements and Calculations Ao V2 max: 93.1 cm/sec LVOT Max Flaco: 68.1 cm/sec Ao V2 mean: 71.7 cm/sec LV V1 max P.85 mmHg Ao V2 VTI: 15.1 cm LV V1 VTI: 10.2 cm Ao max P.5 mmHg SV(LVOT): 35.2 ml Ao mean P.17 mmHg SHELTON(I,D): 2.32 fire controlman??? SHELTON(V,D): 2.5 fire controlman??? SEHLTON indexed to BSA (cm^2/m^2): 1.23 sev ratio: 0.67 MV E max flaco: 58.9 cm/sec MV dec time: 0.16 sec MV A max flaco: 45.1 cm/sec MV E/A: 1.31 Med Peak E' Flaco: 5.4 cm/sec Lat Peak E' Flaco: 10.8 cm/sec E/e' average: 8.2 TR max flaco: 248.2 cm/sec PA mean P.18 mmHg TR max P.6 mmHg PA V2 max: 71.9 cm/sec MR ERO: 0.13 fire controlman??? MR PISA: 2.16 fire controlman??? Ronna Savage Electronically signed by: Ronna Savage 05/06/2025, 5: 02 PM
== END ==
PROVIDERS: PCP Family Medicine; Referring Provider Family Medicine; Visit Provider Family Medicine
DX: I08.1 Rheumatic disorders of both mitral and tricuspid valves (principal); R42 Dizziness and giddiness
CPT/HCPCS: 93306